=== PATIENT | male | born 1990 | race Caucasian/White ===

== ENCOUNTER → 2021-04-16 08:25 | Outpatient (CLI) | payer BC, SELFPAY ==
[2021-04-17 07:19] LABS: SARS-CoV-2 RNA PCR Negative
== END ==
PROVIDERS: PCP Emergency Medicine; Visit Provider Emergency Medicine
DX: Z20.822 Contact with and (suspected) exposure to COVID-19 (principal)
CPT/HCPCS: C9803; U0003; U0005

== ENCOUNTER 2021-11-22 16:30 | Emergency (ER) | payer BC, SELFPAY ==
--- NOTE | ~2021-11-22 | XR_ITS ---
EXAMINATION: XR chest 2V Exam Date/Time: 11/22/2021 16:58 CDT CLINICAL HISTORY: COUGH X 2 DAYS. ASTHMA. Comparison: None available. RESULT: Lines, tubes, and devices: None. Lungs and pleura: Clear. Cardiomediastinal silhouette: Normal cardiomediastinal silhouette. Other: No acute osseous or upper abdominal finding. IMPRESSION: No acute cardiopulmonary process Reviewed, dictated and finalized at location [facility].
[2021-11-22 16:34] VITALS: BP 141/94; PULSE 97; RESP 14; TEMP 36.8; O2SAT 97
[2021-11-22 16:46] VITALS: BP 141/94; PULSE 97; RESP 14; TEMP 36.8; O2SAT 97
--- NOTE | 2021-11-22 16:52 | ED.GENADULT ---
HPI - General Adult General Chief complaint: Upper Respiratory Infection Stated complaint: sinus infection Source: patient Mode of arrival: ambulatory Limitations: no limitations History of Present Illness HPI narrative: Patient presents for evaluation of upper respiratory symptoms for the last 2 days. Symptoms include postnasal drainage, cough, exertional dyspnea, wheezing and sensation of sputum in the back of the throat. No fever, chills, nausea, vomiting, chest pain. He has a hx of asthma. He works outdoors and thinks that this may be contributory to his symptoms. He has sleep apnea and wears CPAP. No recent sick contacts to his knowledge. He had COVID within the past six months. He does not smoke. He took some nyquil and Benadryl for his symptoms. He is unsure whether these medications helped his symptoms. No additional complaints or concerns. Related Data Home Medications Medication Instructions Recorded Confirmed alprazolam 0.5 mg PO DAILY PRN 11/22/21 11/22/21 bupropion HCl 150 mg PO QAM 11/22/21 11/22/21 dextroamphetamine-amphetamine 30 mg PO DAILY 11/22/21 11/22/21 Allergies Allergy/AdvReac Type Severity Reaction Status Date / Time No Known Allergies Allergy Mild Verified 11/22/21 16:43 Review of Systems Review of Systems: CONSTITUTIONAL: Denies fever, chills, or sweats. EYES: Denies visual changes, redness, or discharge. ENT: Reports postnasal drainage and sore throat following a cough. Reports sensation of sputum stuck in the throat . Denies otalgia. CARDIOVASCULAR: Denies chest pain, palpitations, or edema. RESPIRATORY: Reports cough, exertional dyspnea, wheezing. GASTROINTESTINAL: Denies abdominal pain, nausea, vomiting, or diarrhea. GENITOURINARY: Denies dysuria or hematuria. SKIN: Denies rash or itching. MUSCULOSKELETAL: Denies back pain, joint pain, or myalgia. NEUROLOGIC: Denies headache, numbness, dizziness, or weakness. PSYCHIATRIC: Denies anxiety or depression. [facility] Past Medical History Medical History (Updated 11/22/21 @ 17:29 by Ermias Amaya, NATALYA, GARRETT) Asthma Obstructive sleep apnea Surgical History Surgical History No pertinent past surgical history Family History Family History (Reviewed 11/22/21 @ 16:58 by Ermias Amaya, [facility], [place]) Mother Valvular heart disease Social History Social History (Reviewed 11/22/21 @ 16:58 by Ermias Amaya, [facility] [place]) Alcohol intake: never Substance use: never Spiritual care concerns: No Exam Narrative: GENERAL: Well-appearing, well-nourished, and in no acute distress. HEAD: Normocephalic, atraumatic. EYES: PERRLA and EOMI. ENT: Nares clear, no rhinorrhea or epistaxis. Mucous membranes moist. There is posterior pharyngeal swelling consistent with history of obstructive sleep apnea. Uvula is midline. Bilateral TMs pearly amaro nonbulging NECK: Supple. No adenopathy or masses. No carotid bruits or JVD CHEST: Clear to auscultation. Cough present on exam. No stridor. No respiratory distress. No wheezes rales or rhonchi HEART: Regular rate and rhythm. No murmur heard. Normal peripheral pulses. ABDOMEN: Soft, nontender, nondistended, normal active bowel sounds. EXTREMITIES: Normal range of motion. No edema. SKIN: Warm, dry, no rash. NEURO: No focal deficits. Alert and oriented x3. PSYCH: Normal mood and affect. Course Course Emergency Course: This is a 31-year-old male with history of SARATH and asthma who present with complaints of respiratory symptoms. Influenza negative. CXR negative. Given hx of asthma will dc with prednisone, proair and mucinex dm. Patient agreement with plan for worsening symptoms. Patient agreement plan of care. Level of Care: Express Care Visit Vital Signs Vital signs: Vital Signs Temperature 36.8 C 11/22/21 16:34 Pulse Rate 97 11/22/21 16:34 Respiratory Rate 14 11/22/21 16:34 Blood Pressure 141/94 H 11/22/21 16:34 Pu
== END 2021-11-22 17:36 | disposition home or self-care (01) ==
PROVIDERS: Emergency Provider Nurse Practitioner; PCP Emergency Medicine
DX: J06.9 Acute upper respiratory infection, unspecified (principal); J45.909 Unspecified asthma, uncomplicated
CPT/HCPCS: 71046; 87804; 99203; G0463

== ENCOUNTER → 2022-01-30 15:33 | Outpatient (CLI) | payer BC, SELFPAY ==
--- NOTE | ~2022-01-30 | CT_ITS ---
EXAMINATION: CT sinus wo con DATE: 01/30/2022 15:46 INDICATION: Chronic sinusitis TECHNIQUE: Computed tomography (CT) of the paranasal sinuses was performed without contrast. Iterativ e reconstruction technique was employed. Exam dose: 272.05 mGy-cm total exam DLP. COMPARISON: 01/23/2005 CT brain FINDINGS: There is leftward deviation of the nasal septum. There is prominent asymmetric soft tissue swelling of the right middle and inferior nasal turbinates. There is intralamellar cell and christina bullosa of the right middle nasal turbinate. 9.7 x 21 x 1.6 mm soft tissue opacity of right frontal sinus. The paranasal sinuses otherwise are nor bonnie developed and aerated. The osteomeatal units are patent bilaterally. The mastoid air cells are normally developed and aerated. IMPRESSION: Leftward deviation of the nasal septum Prominent asymmetric soft tissue swelling of the right middle and inferior nasal turbinates Interlamellar cell and christina bullosa of right middle nasal turbinate 1.6 x 9.7 x 2.1 cm soft tissue opacity of right frontal sinus Reviewed, dictated and finalized at [facility]. Reviewed, dictated and finalized at location [facility]. IMPRESSION: Leftward deviation of the nasal septum Prominent asymmetric soft tissue swelling of the right middle and inferior nasa l turbinates Interlamellar cell and christina bullosa of right middle nasal turbinate 1.6 x 9.7 x 2.1 cm soft tissue opacity of right frontal sinus
== END ==
PROVIDERS: PCP Emergency Medicine; Visit Provider Otolaryngology
DX: J32.9 Chronic sinusitis, unspecified (principal); J34.2 Deviated nasal septum; J34.81 Nasal mucositis (ulcerative)
CPT/HCPCS: 70486

== ENCOUNTER 2023-01-17 16:19 | Emergency (ER) | payer OTHER, SELFPAY ==
[2023-01-17 16:31] VITALS: BP 143/105; PULSE 77; RESP 16; TEMP 36.9; O2SAT 99
[2023-01-17 16:33] VITALS: BP 143/105; PULSE 77; RESP 16; TEMP 36.9; O2SAT 99
--- NOTE | 2023-01-17 17:11 | ED.DENTAL ---
HPI - Dental/Oral General Chief complaint: Dental/Oral Stated complaint: front tooth pain Time Seen by Provider: 01/17/23 17:11 Source: patient Mode of arrival: ambulatory Limitations: no limitations History of Present Illness HPI Narrative: 32-year-old male presents with complaint lower dental pain for 2-3 days. Reports history tooth being capped due to previous infection. States that the cap off to can feel infection pain down to his chin. Afebrile. Plans to call his dentist Wednesday morning for appointment. No significant facial swelling noted. all systems reviewed and negative except as noted above. Related Data Home Medications Medication Instructions Recorded Confirmed alprazolam 0.5 mg tablet 0.5 mg PO DAILY PRN Anxiety 11/22/21 11/22/21 bupropion HCl 150 mg 24 hr tablet, 150 mg PO QAM 11/22/21 11/22/21 extended release dextroamphetamine-amphetamine ER 30 mg PO DAILY 11/22/21 11/22/21 30 mg 24hr capsule,extend release Allergies Allergy/AdvReac Type Severity Reaction Status Date / Time No Known Allergies Allergy Mild Verified 01/17/23 16:32 Review of Systems Review of Systems: CONSTITUTIONAL: Denies fever, chills, or sweats. EYES: Denies visual changes, redness, or discharge. ENT: Denies rhinorrhea, congestion, sore throat, or otalgia. Lower dental pain. CARDIOVASCULAR: Denies chest pain, palpitations, or edema. RESPIRATORY: Denies cough or dyspnea. GASTROINTESTINAL: Denies abdominal pain, nausea, vomiting, or diarrhea. GENITOURINARY: Denies dysuria or hematuria. SKIN: Denies rash or itching. MUSCULOSKELETAL: Denies back pain, joint pain, or myalgia. NEUROLOGIC: Denies headache, numbness, or weakness. PSYCHIATRIC: Denies anxiety or depression. All other systems reviewed are negative, except as documented in HPI. [facility] Past Medical History Medical History (Updated 01/17/23 @ 17:16 by Argenis Julian NP) Asthma Obstructive sleep apnea Surgical History Surgical History No pertinent past surgical history Family History Family History Mother Valvular heart disease Social History Social History Alcohol intake: never Substance use: never Spiritual care concerns: No Comments At time of signature, agree with nursing past medical, surgical, social and family history. There is no relevant family history pertinent to the presenting complaint. Exam Narrative: GENERAL: This is a well-nourished, well-developed patient, in no apparent distress. HEAD: normocephalic, atraumatic. EYES: PERRL. Sclera clear/white. Vision is grossly intact. EARS: External ears normal NOSE: External nose normal MOUTH: small hole noted to tooth #25 with tenderness around tooth. no fluctuance noted. NECK: Neck supple, non-tender without lymphadenopathy, masses or thyromegaly. CARDIOVASCULAR: Regular rate and rhythm without murmurs, gallops, or rubs. RESPIRATORY: Clear to auscultation. Breath sounds equal bilaterally. No wheezes, rales, or rhonchi. SKIN: warm, Dry, intact with no suspicious lesions or rash, good texture and turgor. NEURO: awake, alert, and oriented to person, place and time. There were no obvious focal neurologic abnormalities. EXTREMITIES: No joint tenderness, effusion, or edema noted. Course Course Level of Care: Express Care Visit Vital Signs Vital signs: Vital Signs Temperature 36.9 C 01/17/23 16:31 Pulse Rate 77 01/17/23 16:31 Respiratory Rate 16 01/17/23 16:31 Blood Pressure 143/105 H 01/17/23 16:31 Pulse Oximetry 99 01/17/23 16:31 Oxygen Delivery Room Air 01/17/23 16:31 Temperature 36.9 C 01/17/23 16:33 Pulse Rate 77 01/17/23 16:33 Respiratory Rate 16 01/17/23 16:33 Blood Pressure 143/105 H 01/17/23 16:33 Pulse Oximetry 99 01/17/23 16:3
== END 2023-01-17 17:18 | disposition home or self-care (01) ==
PROVIDERS: Emergency Provider Nurse Practitioner Family; PCP Emergency Medicine
DX: K04.7 Periapical abscess without sinus (principal); J45.909 Unspecified asthma, uncomplicated
CPT/HCPCS: 99213; G0463